=== PATIENT | female | born 1975 | race African-American/Black ===

== ENCOUNTER 2019-03-20 21:35 | Emergency (ER) | payer OTHER ==
[~2019-03-20] VITALS: Ht 165.1 cm; Wt 110.0 kg
[~2019-03-20 21:35] MED LIST: ALBU8.5H6 IH; CEPH-264 PO; CETI10TA22 PO; HYDR-1179 PO; IBUP200T44 PO; LORA10TA3 PO; METO-247 PO; METO50TA29 PO; MULT1TAB52 PO; PRED20TA PO; TELM80TA PO; TRIA1CAP3 PO
--- NOTE | 2019-03-20 21:48 | ED.ADGEN ---
Past History Past Medical History: High Cholesterol, Hypertension, UTI Past Surgical History: , Hysterectomy Smoking: Non-smoker Alcohol Use: None Drug Use: None Adult General Chief Complaint Chief Complaint ".. I feel like I got a UTI.. I ve had the symptoms about a week..." HPI HPI Patient is a 43 year old female who presents with above hx and complaints of dysuria x 1 week. Patient has had urinary tract infections the past. And this feels similar. Patient denies any vaginal discharge or concerns of an STD. Patient denies any history immunosuppression. No recent travel or specific ill contacts. Pt. follows at [place]. Patient presents with her son who has a fractured left forearm/wrist. Review of Systems Review of Systems Constitutional: Denies fever or chills [] Eyes: Denies change in visual acuity, redness, or eye pain [] HENT: Denies nasal congestion or sore throat [] Respiratory: Denies cough or shortness of breath [] Cardiovascular: No additional information not addressed in HPI [] GI: Denies abdominal pain, nausea, vomiting, bloody stools or diarrhea [] : Complains of dysuria or hematuria [] Musculoskeletal: Denies back pain or joint pain [] Integument: Denies rash or skin lesions [] Neurologic: Denies headache, focal weakness or sensory changes [] Endocrine: Denies polyuria or polydipsia [] All other systems were reviewed and found to be within normal limits, except as documented in this note. Family History Family History Noncontributory Current Medications Current Medications Current Medications Medications (Trade) Dose Ordered Sig/Shalini Start Time Stop Time Status Last Admin Dose Admin Phenazopyridine HCl (Pyridium) 200 mg 1X ONCE 03/20/19 22:15 03/20/19 22:16 DC 03/20/19 22:44 200 MG Trimethoprim/ Sulfamethoxazole (Bactrim Ds) 1 tab 1X ONCE 03/20/19 23:30 03/20/19 23:31 Allergies Allergies Allergies Coded Allergies Type Severity Reaction Last Updated Verified No Known Drug Allergies 03/22/14 No Physical Exam Physical Exam Constitutional: Moderately acute distress, non-toxic appearance. [] HENT: Normocephalic, atraumatic, bilateral external ears normal, oropharynx moist, no oral exudates, nose normal. [] Eyes: PERRLA, EOMI, conjunctiva normal, no discharge. [] Neck: Normal range of motion, no tenderness, supple, no stridor. [] Cardiovascular:Heart rate regular rhythm, no murmur [] Lungs & Thorax: Bilateral breath sounds clear to auscultation [] Abdomen: Bowel sounds normal, soft, no tenderness, no masses, no pulsatile masses. Obese. Old surgery scars. No rebound pain Skin: Warm, dry, no erythema, no rash. [] Back: No tenderness, no CVA tenderness. [] Extremities: No tenderness, no cyanosis, no clubbing, ROM intact, no edema. [] Neurologic: Alert and oriented X 3, normal motor function, normal sensory function, no focal deficits noted. [] Psychologic: Affect anxious, judgement normal, mood normal. [] Current Patient Data Lab Results Laboratory Tests Test 03/20/19 21:49 Urine Collection Type Void Urine Color Straw Urine Clarity Clear Urine pH 7.0 Urine Specific [place] 1.010 Urine Protein Neg (NEG-TRACE) Urine Glucose (UA) Neg mg/dL (NEG) Urine Ketones (Stick) Neg mg/dL (NEG) Urine Blood Small (NEG) Urine Nitrite Neg (NEG) Urine Bilirubin Neg (NEG) Urine Urobilinogen Dipstick 0.2 mg/dL (0.2 mg/dL) Urine Leukocyte Esterase Trace (NEG) Urine RBC 1-2 /HPF (0-2) Urine WBC 5-10 /HPF (0-4) Urine Squamous Epithelial Cells Occ /LPF Urine Bacteria Few /HPF (0-FEW) EKG EKG [] Radiology/Procedures Radiology/Procedures [] Course & Med Decision Making Course & Med Decision Making Pertinent Labs and Imaging studies reviewed. (See chart for details). Patient push vitamin C drinks. Patient push fluids. Patient follow-up cultures. Patient follow-up primary care. Patient take Bactrim DS twice day for 7 days. Patient return if any concerns. [] Final Impression Final Impression 1. Dysuria[]- UTI Dragon Disclaimer Dragon Disclaimer This electronic medical record was generated, in whole or in part, using a voice recognition dictation system. Discharge Summary Visit Information Final Diagnosis Problems Medical Problems: (1) Dysuria Status: Acute Brief Hospital Course Allergies Allergies Coded Allergies Type Severity Reaction Last Updated Verified No Known Drug Allergies 03/22/14 No Lab Results Laboratory Tests Test 03/20/19 21:49 Urine Collection Type Void Urine Color Straw Urine Clarity Clear Urine pH 7.0 Urine Specific [place] 1.010 Urine Protein Neg (NEG-TRACE) Urine Glucose (UA) Neg mg/dL (NEG) Urine Ketones (Stick) Neg mg/dL (NEG) Urine Blood Small (NEG) Urine Nitrite Neg (NEG) Urine Bilirubin Neg (NEG) Urine Urobilinogen Dipstick 0.2 mg/dL (0.2 mg/dL) Urine Leukocyte Esterase Trace (NEG) Urine RBC 1-2 /HPF (0-2) Urine WBC 5-10 /HPF (0-4) Urine Squamous Epithelial Cells Occ /LPF Urine Bacteria Few /HPF (0-FEW) Brief Hospital Course Ms. Haskins is a 43 old female who presented with dysuria. Discharge Information Condition at Discharge: Stable Disposition/Orders: D/C to Home Dischare Medications Current Medications Phenazopyridine HCl (Pyridium) 200 mg 1X ONCE PO Last administered on 03/20/19at 22:44; Admin Dose 200 MG; Start 03/20/19 at 22:15; Stop 03/20/19 at 22:16; Status DC Trimethoprim/ Sulfamethoxazole (Bactrim Ds) 1 tab 1X ONCE PO ; Start 03/20/19 at 23:30; Stop 03/20/19 at 23:31 Active Scripts Active Bactrim Ds Tablet (Sulfamethoxazole/Trimethoprim) 1 Each Tablet 1 Tab PO BID Keflex (Cephalexin) 500 Mg Capsule 500 Mg PO TID Hydrocodone-Ibuprofen 7.5-200 (Hydrocodone/Ibuprofen) 1 Each Tablet 1 Tab PO PRN Q6HRS PRN Reported Multivitamins (Multivitamin) 1 Each Tablet 1 Tab PO DAILY Loratadine 10 Mg Tablet 1 Tab PO DAILY PRN Micardis (Telmisartan) 80 Mg Tablet 1 Tab PO DAILY Metoprolol Succinate ( Xl ) (Metoprolol Succinate) 100 Mg Tab.er.24h 1 Tab PO DAILY Metoprolol Succinate ( Xl ) (Metoprolol Succinate) 50 Mg Tab.er.24h 1 Tab PO DAILY Triamterene-Hctz 37.5-25 Mg Cp (Triamterene/Hydrochlorothiazid) 1 Each Capsule 1 Cap PO DAILY Albuterol Sulfate Hfa Inhaler (Albuterol Sulfate) 8.5 Gm Hfa.aer.ad 2 Puff IH QI D PRN Zyrtec (Cetirizine Hcl) 10 Mg Tablet 10 Mg PO DAILY PRN Cecelia Disclaimer This chart was dictated in whole or in part using Voice Recognition software in a busy, high-work load, and often noisy Emergency Department environment. It may contain unintended and wholly unrecognized errors or omissions. ARMIN MCLAUGHLIN MD Mar 20, 2019 21:48
[2019-03-20] MEDS ORDERED: SULF1TAB24 PO (21:58)
[2019-03-20] MEDS ORDERED: PHENAZOPYRIDINE 200 MG TABLET. PO ONE (22:15)
[2019-03-20 22:44] LABS: BACTERIA,URINE FEW /HPF (0-FEW); BILIRUBIN,URINE NEG (NEG); CLARITY,URINE CLEAR; COLOR,URINE STRAW; GLUCOSE,URINE NEG (NEG); NITRITE,URINE NEG (NEG); SQUAMOUS EPITHELIAL CELL,UR OCC /LPF; UROBILINOGEN,URINE 0.2 mg/dL (0.2 mg/dL)
[2019-03-20 23:00] VITALS: BP 163/92
[2019-03-20] MEDS ORDERED: SMZ/TMP 800/160MG TABLET. PO ONE (23:30)
== END 2019-03-20 23:00 | disposition home or self-care (01) ==
LOC: ER 21:35
DX: N39.0 Urinary tract infection, site not specified (principal); E78.00 Pure hypercholesterolemia, unspecified; I10 Essential (primary) hypertension; Z87.440 Personal history of urinary (tract) infections; Z98.890 Other specified postprocedural states; Z90.710 Acquired absence of both cervix and uterus
CPT/HCPCS: 81001; 87086; 99284

== ENCOUNTER → 2021-08-01 | Outpatient (CLI) | payer OTHER ==
[~2021-08-01] MED LIST changes: -CETI10TA22 PO; +CETI10TA74 PO; +MULT-445 PO; -MULT1TAB52 PO; +SULF1TAB24 PO
--- NOTE | 2021-08-01 13:24 | RAD ---
VENOUS DUPLEX EXAMINATION OF THE RIGHT UPPER EXTREMITY Clinical indications: Right upper extremity axillary swelling. Findings: Duplex sonography (including manriquez scale evaluation and color flow and waveform spectral griffin lysis) of the inferior aspect of the right internal jugular vein was performed. Duplex sonography (in cluding manriquez scale evaluation and color flow and waveform spectral analysis) of the right subclavian vein as far as it could be visualized prior to it's descent underneath the medial aspect of the clavi sofía was performed. Duplex sonography (including manriquez scale evaluation and color flow and waveform spe ctral analysis) of the right axillary, brachial, basilic, cephalic, ulnar and radial veins was perfor med. Normal compressibility and augmentation of color Doppler flow after forearm compression is seen. Color-flow completely fills the lumen of these veins. Therefore, there are no sonographic findings o f deep venous thrombosis within these veins. Impression: There are no sonographic findings of deep venous thrombosis within the veins discussed ab ove of the right upper extremity. Electronically signed by: Boone Galicia MD (08/01/2021 1:22 PM) [id number]
== END ==
LOC: MAMMO 12:25
PROVIDERS: ATTEND Family Medicine
DX: M79.89 Other specified soft tissue disorders (principal); M79.621 Pain in right upper arm
CPT/HCPCS: 93971